=== PATIENT | male | born 1970 | race Caucasian/White ===

== ENCOUNTER 2019-05-19 13:09 | Emergency (ER) | payer SELFPAY ==
[2019-05-19 13:13] VITALS: BP 154/86; PULSE 98; RESP 18; TEMP 36.5; O2SAT 97
--- NOTE | 2019-05-19 13:29 | ED.GENADUL_ITS ---
Discharge Plan Disposition Patient Disposition: HOME Condition: Improving Discharge Details Chief Complaint: DentalOral Clinical Impression: Dental abscess Primary Care Provider: None,None ED Provider: Sandra Charles Home Meds and New Rx's Prescriptions: New amoxicillin-pot clavulanate [Augmentin] 875-125 mg tablet 1 tab PO BID 7 Days Qty: 14 RF: 0 tramadol 50 mg tablet 50 mg PO Q6H PRN (Reason: pain) Qty: 10 RF: 0 Discharge Instructions Instructions: Dental Abscess (ED) Additional Instructions: Take the antibiotics until finished. Alternate tylenol and motrin as needed and directed for pain. Take the tramadol for pain not relieved with Tylenol or Motrin. Call a dentist on Tuesday morning to schedule a follow-up appointment for reevaluation. Return to the emergency department if you develop any worsening or new concern ing symptoms such as worsening swelling, difficulty swallowing or breathing. Discharge Data Discharge Physician: Sandra Charles Medical Decision Making 48-year-old male presents with left lower dental pain and swelling for the past few weeks, worse since yesterday. Patient treated himself with amoxicillin that he had at home 2 months ago with some relief but symptoms returned. Denies any known fever or difficulty swallowing or breathing. Tenderness to palpation of tooth #20 with buccal wall abscess noted. Area anesthetized with topical Hurricaine gel and 3 cc of bupivacaine and lidocaine.. 18-gauge needle used with syringe to remove approximately 4 cc of purulent drainage. Patient symptoms significantly improved. Sent home with a prescription for Augmentin. Also given a prescription for tra madol for pain at night as he has been having trouble sleeping. Patient was given dental list follow-up information. He was advised to return here if he develops any worsening swelling, difficulty swallowing or breathing. HPI General Mode of arrival: ambulatory . Date/Time Provider Initiated Documentation: 05/19/19 13:10 . Limitations to Documentation: no limitations . Information obtained by: patient . History of Present Illness 48 year old M presents to the emergency department with the chief complaint of Left lower dental pain and facial swelling, Quality is described as stabbing and sharp, and is localized to the face and mouth. Patient started experiencing this week(s) (Worse since yesterday) and it has been constant. No relieving factors improve symptom(s), No exacerbating factors reported . Patient notes no other symptoms.. Patient did receive the following treatments prior to arrival, none Related Data Home Medications Medication Instructions Recorded Confirmed amoxicillin-pot clavulanate 1 tab PO BID 7 Days #14 tab 05/19/19 [Augmentin] tramadol 50 mg PO Q6H PRN #10 tab 05/19/19 Previous Rx's Medication Instructions Recorded amoxicillin-pot clavulanate 1 tab PO BID 7 Days #14 tab 05/19/19 [Augmentin] tramadol 50 mg PO Q6H PRN #10 tab 05/19/19 Allergies Allergy/AdvReac Type Severity Reaction Status Date / Time No Known Allergies Allergy Unverified 05/19/19 13:16 General Stated Complaint: DentalOral PIPER: 4 Review of Systems All systems reviewed & are unremarkable except as noted in HPI and below Constitutional Constitutional: Reports as per HPI, Denies chills and Denies fever(s) Eyes Eyes: Denies blurry vision ENT Ears, Nose, Mouth, and Throat: Reports dental pain, Denies dizziness, Denies sore throat and Denies throat swelling Cardiovascular Cardiovascular: Denies chest pain and Denies dyspnea Respiratory Respiratory: Denies cough and Denies dyspnea Gastrointestinal Gastrointestinal: Denies abdominal pain, Denies diarrhea and Denies vomiting Genitourinary Genitourinary: Denies hematuria and Denies dysuria Musculoskeletal Musculoskeletal: Denies back pain and Denies numbness Integumentary/Breasts Skin/Breast: Denies lesions and Denies rash Neurologic Neurologic: Denies dizziness, Denies focal weakness and Denies numbness Allergic/Immunologic Allergic/Immunologic: Denies throat swelling REPLACED BY [facility] Medical History Coronary artery disease (Chronic) Surgical History History of coronary artery stent placement (Chronic) Social History Smoking/Tobacco Use Status: Current every day Tobacco Type: cigarettes Alcohol Intake: current Alcohol Intake frequency: 0-2 drinks per day Alcohol type: hard liquor Drug use: Occasionally Substance use type: marijuana Do you feel safe at home: Yes Do you feel safe in your relationship?: Yes Exam Const General: cooperative, healthy appearing and no acute distress HENMT Head: normal to inspection Ears: hearing grossly normal bilaterally and external ears normal General nose exam: external nose normal Face images: 1. Mild to moderate tenderness, edema and induration. Mouth: oral mucosae normal, no drooling and no trismus Teeth image: 1. Tenderness to palpation of this tooth with abscess noted on buccal wall. Abscess is fluctuant and moderate in size. Throat: posterior oropharynx normal, tonsils normal and uvula midline Eyes General: appearance normal, both eyes and all related structures Neck Neck: normal visual inspection, no lymphadenopathy, no meningeal signs, trachea midline, supple and No submandibular swelling Resp Effort & Inspection: normal respiratory effort and able to speak in complete sentences Cardio Rate: regular rate Skin General skin exam: no rashes or lesions noted Neuro General: alert, awake and oriented x3 Motor: muscle tone normal throughout Extrem General: normal to inspection and full ROM Psych Appearance: grossly normal Affect: normal affect Course Vital Signs Vital signs: Vital Signs Temperature 97.7 F 05/19/19 13:13 Pulse 98 H 05/19/19 13:13 Respiratory Rate 18 05/19/19 13:13 Blood Pressure 154/86 H 05/19/19 13:13 Pulse Oximetry 97 05/19/19 13:13 Temperature 97.7 F 05/19/19 13:13 Temperature Source Temporal Artery Scan 05/19/19 13:13 Pulse 98 H 05/19/19 13:13 Respiratory Rate 18 05/19/19 13:13 Respiratory Effort Non-Labored 05/19/19 13:16 Blood Pressure 154/86 H 05/19/19 13:13 Blood Pressure Position Sitting 05/19/19 13:13 Pulse Oximetry 97 05/19/19 13:13 Oxygen Delivery Method Room Air 05/19/19 13:13 Oxygen Flow Rate 0 05/19/19 13:13 Pain Level 10 05/19/19 13:13 Procedures Abscess I/D Site: Other (Dental) Side (if applicable): Left Local Anesthetic: Lidocaine 1% (2 cc), Bupivicaine 0.5% (3 cc) and Other Anesthetic (Topical Hurricaine gel applied with Q-tips to left lower buccal abscess) Amount of anesthesia used (mL): 3 Technique: Needle Aspiration Amount of fluid expressed (mL): 4 Irrigation: Yes Packing used?: None Complications: Pain
[2019-05-19] MEDS: Acetaminophen 500 MG TAB (13:52)
[2019-05-19] MEDS: Ibuprofen 600 MG TAB (13:52)
[2019-05-19] MEDS: Amoxicillin 875/Clav. 125 TAB PO (14:43)
== END 2019-05-19 14:47 | disposition home or self-care (01) ==
PROVIDERS: Emergency Provider Physician Assistant
DX: R68.84 Jaw pain (principal); K04.7 Periapical abscess without sinus; R22.0 Localized swelling, mass and lump, head; I25.10 Atherosclerotic heart disease of native coronary artery without angina pectoris; Z95.5 Presence of coronary angioplasty implant and graft
CPT/HCPCS: 10160

== ENCOUNTER 2020-10-13 19:35 | Outpatient (REF) | payer SELFPAY ==
[2020-10-13 18:06] LABS: Abs Immature Grans 0.01 10^3/uL (0.0-0.06); Absolute Basophil Count 0.06 10^3/uL (0.0-0.2); Absolute Eosinophil Count 0.18 10^3/uL (0.0-0.7); Absolute Lymphocyte Count 1.59 10^3/uL (1.2-3.4); Absolute Neutrophil Count 4.34 10^3/uL (1.2-6.7); Basophils % 0.9; Eosinophils % 2.6; HCT 48.6 % (40.0-50.0); HGB 16.6 g/dL (13.5-17.5); Immature Grans % 0.1; Lymphocytes % 23.1; MCH 32.8 pg (27.0-33.0); MCHC 34.2 % (32.0-36.0); MPV 10.5 fL (8.0-11.0); Monocytes % 10.2; Neutrophils % 63.1; Nucleated RBC 0 %; Platelet Count 268 10^3/uL (130-400); RBC 5.06 10^6/uL (4.36-5.78); RDW 11.8 % (11.8-14.1); RDW-SD 41.3 fL; WBC 6.88 10^3/uL (4.4-10.8)
[2020-10-13 18:24] LABS: Anion Gap 10.7 mmol/L (3-11); BUN 13 mg/dL (7-18); C-Reactive Protein 6.06 mg/dL (0.0-0.3); CO2 28.3 mmol/L (21.0-32.0); CREATININE 0.7 mg/dL (0.70-1.30); Calcium 9.2 mg/dL (8.5-10.1); Chloride 105 mmol/L (98-107); Glucose 104 mg/dL (74-106); Magnesium 1.8 mg/dL (1.8-2.4); Potassium 3.9 mmol/L (3.5-5.1); Sodium 144 mmol/L (136-145)
== END 2020-10-13 19:36 | disposition home or self-care (01) ==
LOC: LBN 19:35
PROVIDERS: Visit Provider Nurse Practitioner Family
DX: M79.601 Pain in right arm (principal)
CPT/HCPCS: 80048; 83735; 85025; 86140